=== PATIENT | female | born 1950 | race Caucasian/White ===

== ENCOUNTER 2022-01-24 10:10 | Observation (INO) | payer MEDICARE, OTHER ==
[~2022-01-24] VITALS: Ht 160 cm; Wt 81.5 kg
[2022-01-24] VITALS (11 sets, daily range): BP systolic 142–166; BP diastolic 64–82; PULSE 56–75; TEMP 97.1–98.2
[~2022-01-24 10:10] MED LIST: CARAFATE 1GM1 G PO; CRESTOR20 MG PO; FERROUS SULFATE27 MG PO; PROTONIX 40MG T40 MG PO; TYLENOL PM EXTR1 TA1 PO
[2022-01-24] MEDS ORDERED: LEXAPRO 10MG10 MG PO (10:49)
[2022-01-24] MEDS ORDERED: LIPITOR 80MG80 MG PO (10:49)
[2022-01-24] MEDS ORDERED: ZESTRIL 10MG10 MG PO (10:50)
--- NOTE | 2022-01-24 15:55 | NUR ---
PATIENT IN AND OUT OF SLEEP. UNABLE TO KEEP HER EYES OPEN LONGER THAN A FEW SECONDS. SHE IS COMPLAING OF SHOULDER PAIN. INFORMED PATIENT SOON SHE IS ABLE TO STAY AWAKE AND WALK IT WILL HELP GET RID OF THE GAS INSIDE AND ALLEVIATE HER SHOULDER PAIN. CURRENTLY STABLE IN RESTING IN BED.
--- NOTE | 2022-01-24 18:05 | NUR ---
PATIENT STATED SHE STILL FEELS "SLEEPY." ENCOURAGED PO INTAKE, HOT TEA AND CHICKEN BROTH GIVEN.
--- NOTE | 2022-01-24 20:35 | NUR ---
PT AWAKE, HAS TAKEN CLEAR LIQUIDS WITHOUT PROBLEM. HAS LAP SITES X5 TO ABD. HS MEDS GIVEN INCLUDING NORCO 1 TAB PO FOR PAIN. HAS VOIDED X1.
--- NOTE | 2022-01-24 21:15 | NUR ---
PT AMBULATES IN HALLWAY WITH STAFF. INT TO LT HAND.
[2022-01-25 03:03] VITALS: BP 155/68; PULSE 56; TEMP 98.1
--- NOTE | 2022-01-25 03:20 | NUR ---
PT ASKING FOR PAIN MEDS, NORCO 1 TAB PO GIVEN.
--- NOTE | 2022-01-25 06:02 | NUR ---
TAKES SCHEDULED AM MED WITHOUT PROBLEM. REPORTS GOOD PAIN RELIEF WITH NORCO.
--- NOTE | 2022-01-25 07:30 | NUR ---
PT HAS NO NEEDS AT THIS TIME
[2022-01-25 07:47] VITALS: BP 150/68; PULSE 62; TEMP 98.1
--- NOTE | 2022-01-25 09:15 | NUR ---
Floor Molder met with patient to discuss discharge planning. Patient lives alone in [place] and sees Veronica Glez APRN for primary care. Patient obtains medications mostly by mail, but also uses [facility] in as needed. Patient does not use DME and is independent with ADLS. Patient reports she has a dog, kitten, calf, and four chickens at home that she cares for. Patient does not have Advance Directives but plans to discuss this with her personal injury attorney. Patient is not interested in completing DPOA-HC during this hospital stay. Patient advised she is supported by her children who live nearby including her daughter, Lila (ph#[phone]) who is listed as patient's emergency contact. Discharge Plan: Home
--- NOTE | 2022-01-25 10:09 | NUR ---
Initial visit; Patient thanked [employer] for looking in on her and visiting and offering a [employer]. [employer] listened and also wished Juliann a good recovery.
[2022-01-25] MEDS ORDERED: NORCO 325 MG-51 TAB PO (12:12)
[2022-01-25 12:24] VITALS: BP 145/76; PULSE 58; TEMP 98.5
== END 2022-01-25 14:29 | disposition home or self-care (01) ==
LOC: SDCO 10:10 → SURG 16:54 → SDCO 18:19 → SURG 18:20
PROVIDERS: ADMIT Surgery
DX: K44.9 Diaphragmatic hernia without obstruction or gangrene (principal); R10.12 Left upper quadrant pain; K80.20 Calculus of gallbladder without cholecystitis without obstruction
CPT/HCPCS: C1781; G0378; J0330; J0690; J1100; J1170; J2405; J2704; J3010; J7120